=== PATIENT | female | born 1965 | race Caucasian/White ===

== ENCOUNTER 2018-05-13 08:06 | Day surgery (SDC) | payer OTHER, SELFPAY ==
[2018-05-13] VITALS (9 sets, daily range): BP systolic 139–176; BP diastolic 70–101; PULSE 89–108; RESP 16–24; TEMP 36.1–36.9; O2SAT 94–97; BMI 38.2
[2018-05-13 08:38] LABS: Hemoglobin 13.6 g/dl (12.0-15.0); Mean Corp Hgb Conc 32.4 g/gl (32-36); Mean Corpuscular Volume 92.5 fL (81-99); Mean Platelet Vol. 9.3 fl (6.2-12.0); Platelet Count 297 K/mm3 (150-450); RBC Distribution Width CV 12.6 % (11.6-14.6); RBC Distribution Width SD 41.8 fl (35.1-43.9); Red Blood Count 4.54 M/mm3 (4.2-5.4); White Blood Count 7.4 K/mm3 (4.4-11.0)
[2018-05-13 08:42] LABS: Scan Indicated on CBC? Y/N NO
--- NOTE | 2018-05-13 10:30 | EMB_PTH ---
PATIENT: Kade AQUINO LOC: [facility] [place] U#:[id number] AGE/SX: 52/F ROOM: RE05/13/[address]: Dr. Joan Sinclair, MDDOB: 1965 BED: DIS: 05/13/2018 SPEC #: [id number] RECD: 05/13/18 14:10 STATUS: REDDY RENisreen #: [id number] GERARDO: 05/13/18 10:[address]: Joan Sinclair DEPT: SURGICAL PATHOLOGY RECD BY: Jose Crook ENTERED: 05/13/18 14:42 SP TYPE: ENDOM BX/C OTHR DR: Dr. Tyrone Langston III, MD Tissues: Endometrium, NOS Procedures: Surgery Specimen Level IV HEADER OPERATION: Hysteroscopy, D & C Symphion PRE-OP DIAGNOSIS: Thickened endometrium, postmenopausal bleeding TISSUE SUBMITTED: Endometrial polyp and endometrial curettings MICROSCOPIC DIAGNOSIS Endometrial polyp and curettings: Polypoid fragments of endometrium with simple hyperplasia without atypia. Mild chronic endometritis. AM:tr 05/14/18 MICROSCOPIC DESCRIPTION Slides are reviewed. GROSS DESCRIPTION Received in fixative is one container labeled with the patient's name and designated endometrial polyp and curettings. The specimen consists of multiple irregular fragments of pink-sharma soft tissue that in aggregate measure 5.5 x 5 x 0.2 cm. The specimen is submitted in its entirety in two cassettes. / AM:tr 05/13/18 TC:5 CPT: 82539
--- NOTE | 2018-05-13 11:16 | PCM.OPRPT ---
Report of Operation Date of Procedure: 05/13/18 Pre-Operative Diagnosis: Post menopausal bleeding, thickened endometrium, enlarged uterus Post-Operative Diagnosis: same, enlarged uterus, endometrial polyp Surgery/Procedure Performed:: Hysteroscopy, D&C with symphion, polypectomy Description of Surgical Findings:: enlarged anteverted uterus- endometrial polyp noted- moderate amount of endometrial tissue noted. Both tubal ostia visualized. carpenter prototype: - Jules Meade ms 3 Type of Anesthesia:: General - LMA Specimen's removed: Endometrial polyp, Endometrial curettings Drains: none Estimated Blood Loss (mL): 5 Fluids Replaced: 1000cc Description of Procedure: Informed consent was obtained the patient was taken the operating room she was placed in supine position. She was given anesthesia. She was then placed in the [facility] where she was prepped and draped in the normal sterile fashion. Bladder drained - 200cc clear yellow urine expelled. At this time the weighted speculum was placed in the posterior fornix of vagina. Single-tooth tenaculum was used to gently grasp the anterior lip the cervix. At this time the uterine cavity was sounded to approximately 17cm. Gentle dilatation was performed once adequate dilatation of the cervix was achieved the hysteroscope using normal saline as a distention medium was placed. abundant Endometrial tissue with possible polyp on Left lateral asepect of uterus . Otherwise no gross abnormalities- cavity intact- both Tubal ostia visualized. Symphion resection device used to perform polypectomy and ECC. Moderate amount of endometrial tissue removed. This will be sent to pathology for evaluation. cavity remained intact. Fluid deficit approx 300cc. Tenaculum removed- good hemostasis. Procedure was deemed complete successful there are no complications. Anticipated normal postoperative course. Instrument lap count correct ?2. Vaginal Sweep was negative. Grafts/Implants Used: none - Complications none - Admit VTE Documentation VTE Present on Admission: Yes VTE Mechan Device Prophylaxis: SCD's VTE Pharm Prophylaxis ordered?: No
--- NOTE | 2018-05-13 11:22 | OP.PCM_ITS ---
Report of Operation Date of Procedure: 05/13/18 Pre-Operative Diagnosis: Post menopausal bleeding, thickened endometrium, enlarged uterus Post-Operative Diagnosis: same, enlarged uterus, endometrial polyp Surgery/Procedure Performed:: Hysteroscopy, D&C with symphion, polypectomy Description of Surgical Findings:: enlarged anteverted uterus- endometrial polyp noted- moderate amount of endometrial tissue noted. Both tubal ostia visualized. 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 She was given anesthesia. She was then placed in the [facility] where she was prepped and draped in the normal sterile fashion. Bladder drained - 200cc clear yellow urine expelled. At this time the weighted speculum was placed in the posterior fornix of vagina. Single-tooth tenaculum was used to gently grasp the anterior lip the cervix. At this time the uterine cavity was sounded to approximately 17cm. Gentle dilatation was performed once adequate dilatation of the cervix was achieved the hysteroscope using normal saline as a distention medium was placed. abundant Endometrial tissue with possible polyp on Left lateral asepect of uterus . Otherwise no gross abnormalities- cavity intact- both Tubal ostia visualized. Symphion resection device used to perform polypectomy and ECC. Moderate amount of endometrial tissue removed. This will be sent to pathology for evaluation. cavity remained intact. Fluid deficit approx 300cc. Tenaculum removed- good hemostasis. Procedure was deemed complete successful there are no complications. Anticipated normal postoperative course. Instrument lap count correct ?2. Vaginal Sweep was negative. Grafts/Implants Used: none - Complications none - Admit VTE Documentation VTE Present on Admission: Yes VTE Mechan Device Prophylaxis: SCD's VTE Pharm Prophylaxis ordered?: No
--- NOTE | 2018-05-13 11:24 | DCINST_ITS ---
Discharge Diet: No Restrictions Discharge Activity: Return to Normal Activity, May Shower, May Take a Tub Bath - in 2 weeks. Allergies/Adverse Reactions: Allergies acetaminophen [From Tylenol] Allergy (Verified 05/07/18 08:54) TACHYCARDIA Medications to take at Discharge Lisinopril/Hydrochlorothiazide [Lisinopril-Hctz 20-12.5 mg Tab] 1 each PO QODAY 05/07/18 Primary Care Physician: Tyrone Langston III, MD [Primary Care Provider] - Test Results: Test results from this visit will be discussed in further detail at your follow- up appointment, if applicable.
== END 2018-05-13 13:36 | disposition home or self-care (01) ==
LOC: SDC 08:07 → AC 08:09
PROVIDERS: Family Provider Family Medicine; PCP Family Medicine; Referring Provider Obstetrics & Gynecology; Visit Provider Obstetrics & Gynecology
PROC: 0UB98ZZ Excision of Uterus, Via Natural or Artificial Opening Endoscopic (ICD-10-PCS; CPT 58558; principal; 2018-05-13 10:15)
DX: N85.01 Benign endometrial hyperplasia (principal); N71.1 Chronic inflammatory disease of uterus; N95.0 Postmenopausal bleeding; N85.2 Hypertrophy of uterus; R93.89 Abnormal findings on diagnostic imaging of other specified body structures; I10 Essential (primary) hypertension
CPT/HCPCS: 00952; 58558; 36415; 85027; 88305; J7120; J2405

== ENCOUNTER 2018-07-08 06:56 | Inpatient (IN) | payer OTHER, SELFPAY ==
[2018-05-13 08:35] VITALS: BMI 38.2
--- NOTE | 2018-06-30 11:51 | HP.PCM_ITS ---
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 Pt has had significant heavy bleeding with clots- placed on Provera taper short term only (has h/o E/P receptor + breast ca)- pt ultimately decided to proceed with surgical mgmt. Pt was given option to go to [facility] for surgical consultation for Laparoscopic morcellation of uterus/fibroids-declines. Pt today matt CP, SOB, Dizziness. ? PAST?MEDICAL?HISTORY PAST MEDICAL HISTORY Diagnosis Date ? Depression ? ? Essential hypertension, benign 06/05/2010 ? 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 10/2012 ? PAST?SURGICAL?HISTORY PAST SURGICAL HISTORY Procedure Laterality Date ? BX BREAST PERC NEED W/GUID ? 10/27/12 ? U/S needle core bx UOQ left breast ? DELIVERY ONLY ? TIMES 2 ? , low cervical ? HYSTEROSCOPY BX W/WO D&C ? 05/2018 ? simple hyperplasia w/o atypia ? MASTECTOMY,PARTIAL, WITH AXILLARY LYMPHADENECTOMY ? 11-17-12 ? LEFT ? REVISE MEDIAN N/CARPAL TUNNEL SURG ? ? ? Carpal tunnel decomp bilateral ? FAMILY?HISTORY FAMILY HISTORY Problem Relation Age of Onset ? Ischemic Heart Disease Father 75 ? OR ? Hypertension Father ? ? other (Dementia) Father ? ? Heart Mother ? ? Hypertension Brother ? ? None Sister ? ? Cancer Maternal Grandmother ? ? breast ? Cancer Paternal Grandmother ? ? Cancer Paternal Aunt ? ? Cancer Paternal Aunt ? ? No Known Problems Daughter ? ? No Known Problems Daughter ? ? 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 CURRENT?MEDICATIONS ? Current Outpatient Medications: medroxyPROGESTERone (PROVERA, CYCRIN) 10 mg tablet Take one tablet TID until bleeding stops then 1 tab BID x 3 days then 1 tab daily losartan (COZAAR) 50 mg tablet Take 1 tablet by mouth once daily. medroxyPROGESTERone (PROVERA) 5 mg tablet Take 1 tablet by mouth once daily. oxyCODONE-acetaminophen (PERCOCET) 5-325 mg tablet Take 1 tablet by mouth every 6 hours as needed for Pain for up to 7 days. ibuprofen (MOTRIN) 600 mg tablet Take 1 tablet by mouth every 6 hours as needed. FOR PAIN. simethicone, chewable (MYLICON) 80 mg chewable tablet Take 1 tablet by mouth every 6 hours as needed. docusate sodium (COLACE) 100 mg capsule Take 1 capsule by mouth twice daily. ? No current facility-administered medications for this visit. Allergies As of Date: 06/30/2018 Allergen Noted Reaction SEASONAL ALLERGIES 10/07/2012 Other: See Comments ? Fully Assessed 06/30/2018 ? ? REVIEW OF SYSTEMS Abdomen: no pain Bladder: no dysuria.. Expanded ROS: GENERAL: Negative for malaise, fever Allergies and current medication updated:Yes ? EXAM: BP 136/84 Wt 226 lb (102.5kg) LMP 08/08/2016 ? GENERAL: pleasant, female in no apparent distress HEENT: Normocephalic, atraumatic, mucus membranes moist and no lesions NECK: Supple and full range of motion DERMATOLOGY: Normal, without lesions, non-icteric and non-hirsute CARDIAC: regular rate and rhythm CHEST: Normal inspiratory effort, clear to auscultation NEURO: alert and oriented x3,exam grossly non-focal EXTREMITIES: normal ? Overall impression: uterus enlarged with two fibroids- largest fibroid is 9.5x8.5x8.5cm Thickened endometrium measuring 19.6mm right and left ovaries not seen no free fluid noted. Recommendations / therapy: Consider EMB with Endosee for further evaluation of endometrium. Follow- up: F/u as clinically indicated. Indication: Postmenopausal bleeding. Gynecological Ultrasonography: Uterus: normal, anteverted. Size: Longitudinal 181 mm. Anterio- posterior 75 mm. Transverse 146 mm. Volume: 1037.7 ml. Fibroids: Fibroid 1: Size: 95 mm x 85 mm x 85 mm. Type: anterior. Position: left mid uterus. Fibroid 2: Size: 33 mm x 17 mm x 28 mm. Type: anterior. Position: right fundus. Endometrium: endometrial cavity could not be seen clearly. Endometrium thickness total: 19.6 mm. Right Ovary: subvisualized. Left Ovary: subvisualized. [place] / [place]: no free fluid visible. Method: transvaginal ultrasound, transabdominal ultrasound, color Doppler, 2 D. View: suboptimal - restricted by patient discomfort. Performed by:Lynn Sales RDMS Read by:Joan Osorio MD ? ASSESSMENT AND PLAN: Encounter Diagnosis ? ? ICD-10-CM ? 1. Post-op pain G89.18 oxyCODONE-acetaminophen (PERCOCET) 5-325 mg tablet ? 2. Pt has been counseled on risks/benefits and alternatives of surgery including but not limited to anesthesia, bleeding, infection, injury to pelvic structures including bowel, bladder, ureters and vessels. Pt wishes to proceed with surgery at this time. 3. We reviewed possibility of oophorectomy- message sent to Oncologist to confirm best approach due to history. 4. Short term use of Progesterone for Bleeding control - heavy bleeding with clots - will stop immediately at time of surgery 5. Consent obtained 6. ERAS protocol reviewed 7. POST OP MEDS GIVEN TODAY ? Joan Sinclair MD ? ? ?
--- NOTE | 2018-07-05 10:18 | EKG12_ITS ---
Test Reason : PRE OP Blood Pressure : / mmHG Vent. Rate : 073 BPM Atrial Rate : 073 BPM P-R Int : 158 ms QRS Dur : 084 ms QT Int : 392 ms P-R-T Axes : 004 019 034 degrees QTc Int : 431 ms Normal sinus rhythm Normal ECG Confirmed by DANIELLE PORTER, JENNIFER ([id number]), editor publications KLAUDIA WILSON ([id number]) on 07/06/2018 11:05:38 AM Referred By: Joan Sinclair Confirmed By:JENNIFER SANTOS MD
--- NOTE | 2018-07-05 10:39 | RAD_ITS ---
STUDY: X-RAY CHEST REASON FOR EXAM: Female, 53 years old. Preoperative evaluation. TECHNIQUE: PA and lateral views of the chest. COMPARISON: None. FINDINGS: The patient is status post left breast surgery with surgical clips in the left axillary region. The lungs are clear and expanded. There is no demonstrated pleural abnormality. Normal size heart. Normal mediastinum and jessica. Normal visualized pulmonary arteries. Normal visualized aortic arch and descending thoracic aorta. There are mild degenerative changes of the visualized thoracic spine. Normal visualized ribs, clavicles, and shoulders. There is no demonstrated abnormality of the visualized soft tissue structures of the upper abdomen. RAD/Chest PA and Lateral IMPRESSION: No acute abnormality is seen. Electronically Signed: Ezra Limon, at 12:18 EDT , Service support ,
[2018-07-05 11:15] LABS: Hematocrit 40.6 % (37-47); Hemoglobin 13.3 g/dl (12.0-15.0); Mean Corp Hgb Conc 32.8 g/gl (32-36); Mean Corpuscular Volume 91.6 fL (81-99); Mean Platelet Vol. 9.6 fl (6.2-12.0); Platelet Count 309 K/mm3 (150-450); RBC Distribution Width CV 13.4 % (11.6-14.6); RBC Distribution Width SD 43.9 fl (35.1-43.9); Red Blood Count 4.43 M/mm3 (4.2-5.4); White Blood Count 5.7 K/mm3 (4.4-11.0)
[2018-07-05 11:23] LABS: Scan Indicated on CBC? Y/N NO
[2018-07-05 11:41] LABS: Anion Gap 5 (5-15); BUN 21 mg/dL (7-18); BUN/Creat Ratio 25.3 RATIO (10-20); Calcium,Total 9.3 mg/dL (8.5-10.1); Chloride 109 mmol/L (98-107); Creatinine, Serum 0.83 mg/dL (0.55-1.02); EST Glomerular Filtration Rate 76 mL/min (>60); Est Glom Filt Rate - Afr Amer 92 mL/min (>60); Glucose 103 mg/dL (74-106); Potassium 4.1 mmol/L (3.5-5.1); Sodium Level 141 mmol/L (136-145)
[2018-07-08] VITALS (17 sets, daily range): BP systolic 76–137; BP diastolic 45–83; PULSE 64–106; RESP 14–24; TEMP 35.9–36.9; O2SAT 92–100; BMI 39.1
[2018-07-08] MEDS: Magnesium Sulfate 4gm/100mL 4 GM/100 ML IV.SOLN. IV (07:54)
[2018-07-08] MEDS: Lactated Ringers 1,000 ML 40 ML IV (07:55)
[2018-07-08] MEDS: Celecoxib 200 MG Capsule 400 MG PO (08:04)
[2018-07-08] MEDS: Gabapentin 600 MG Tablet PO (08:04)
[2018-07-08] MEDS: Enoxaparin 40 MG/0.4 ML Syringe SC (08:06)
[2018-07-08] MEDS: Scopolamine 1mg/72hr Patch 1 PATCH TRANSDERM. (08:07)
[2018-07-08 08:25] LABS: Bedside Glucose 79 mg/dL (70-110)
--- NOTE | 2018-07-08 09:00 | HYST_PTH ---
PATIENT: Kade AQUINO LOC: [facility] U#:[id number] AGE/SX: 53/F ROOM: [facility] RE07/08/[address]: Dr. Joan Sinclair, MDDOB: 1965 BED: 1 DIS: 07/09/2018 SPEC #: [id number] RECD: 07/08/18 12:22 STATUS: REDDY PORSCHE #: [id number] GERARDO: 07/08/18 09:[address]: Joan Sinclair DEPT: SURGICAL PATHOLOGY RECD BY: Jose Crook ENTERED: 07/08/18 13:25 SP TYPE: HYSTERECT OTHR DR: Dr. Tyrone Langston III, MD Tissues: Uterus, NOS Procedures: Surgery Specimen Level V HEADER OPERATION: ERAS, hysterectomy, total abdominal, bilateral salpingectomy PRE-OP DIAGNOSIS: Fibroid, uterus, PMB, simple endometrial hyperplasia without atypia TISSUE SUBMITTED: Uterus, bilateral fallopian tubes, bilateral ovaries MICROSCOPIC DIAGNOSIS Uterus, bilateral fallopian tubes and bilateral ovaries, total abdominal hysterectomy and bilateral salpingo-oophorectomy: Cervix - focal mild chronic inflammation. Endometrium - simple cystic hyperplasia without atypia. Myometrium - leiomyomas (largest measuring 9.2 cm in diameter). - Focal adenomyosis. Bilateral fallopian tubes - no pathologic diagnosis. Bilateral ovaries - no pathologic diagnosis. ANIRUDH:tr 07/12/18 COMMENT Please make reference to previous specimen ([id number]) endometrial polyp and curettings with diagnosis of polypoid fragments of endometrium with simple hyperplasia without atypia. MICROSCOPIC DESCRIPTION Slides are reviewed. GROSS DESCRIPTION Received in fixative is one container labeled with the patient's name and designated uterus and bilateral fallopian tubes and ovaries. The specimen consists of a uterus with attached cervix and separate bilateral ovaries and fallopian tubes. The uterus with attached cervix weights 1038 gm and measures 17.5 x 15.5 x 10 cm. The serosal surface of the uterus is reddish-pink and is markedly distorted by several bulging fibroid masses. Minimal adhesion is observed. The attached cervix measures 4.2 cm in length x 2.5 cm in diameter. The exocervical mucosa is sharma and smooth. The cervical os is patulous and measures 0.6 cm in length. The uterus is opened to reveal an irregular and triangular endometrial cavity measuring 4.5 x 2.5 cm with an average endometrial thickness of 0.1 cm. The endometrial surface is reddish-pink and congested. Sections through the myometrium demonstrate several sharma-white well-circumscribed fibroid masses, the largest of which measures 9.2 cm in diameter. Grossly, no hemorrhage or degenerative change is identified within the fibroid nodules. The first ovary measures 3 x 1.8 x 1.2 cm. The serosal surface is sharma-pink with a slightly wrinkled appearance. Sections through the ovary demonstrate cut surfaces which are sharma and grossly within normal limits. The attached fallopian tube measures 3.5 cm in length x 0.6 cm in diameter. The serosal surface is reddish-pink and smooth. A fimbriated end is present. Cross-sections through the fallopian tube demonstrate a pinpoint lumen. The contralateral ovary measures 3 x 2.1 x 1.4 cm. The surface is sharma-pink and slightly wrinkled. A bluish subserosal cyst measuring 0.7 cm in diameter is noted. Sections through the ovary are grossly within normal limits. The attached fallopian tube measures 3.4 cm in length x 0.5 cm in diameter. The serosal surface is reddish-pink and smooth. A fimbriated end is present. Cross-sections through the fallopian tube demonstrate a pinpoint lumen. Also received within the same specimen container is a free fibroid mass measuring 3.2 x 3 x 2.1 cm. Cross-sections demonstrate a cut surface which is sharma and homogenous. Senior Payroll Manager sections are submitted as follows: 1 - anterior cervix, 2 - posterior cervix, 3 & 4 - anterior endomyometrium, 5 & 6 - posterior endomyometrium, 7-10 - fibroids, 11 - first ovary and fallopian tube, 12 - second fallopian tube and portion of free fibroid mass. / CE:tr 07/08/18 More sections from both ovaries are submitted in five more cassettes (13-17). / SJ:tr 07/09/18 TC:5 CPT: [id number]
[2018-07-08] MEDS: Cefazolin 2 GM in 0.9% Normal Saline 100 ML IV (09:04)
[2018-07-08] MEDS: Bupivacaine Mpf 0.5% 30 ML VIAL (09:21)
--- NOTE | 2018-07-08 11:21 | PCM.OPRPT ---
Problem List (1) Fibroid uterus Status: Acute (2) PMB (postmenopausal bleeding) Status: Acute (3) Simple endometrial hyperplasia without atypia Status: Acute Report of Operation Date of Procedure: 07/08/18 Pre-Operative Diagnosis: Fibroid uterus, AUB, simple hyperplasia without atypia Post-Operative Diagnosis: same Surgery/Procedure Performed:: TAYLOR, BSO Description of Surgical Findings:: ENLAERGED 18 WK SIZE UTERUS. NORMAL TUBES AND OVARIES BILATERALLY. MULTIPLE FIBROIDS, SUBSEROSAL AND INTRAMURAL. lime mixer: Mary - lindsay knowles lime mixer: Orly Bustillo Type of Anesthesia:: General, Local Special Medications: marcaine Specimen's removed: uterus, bilateral tubes, bilateral ovaries, cervix Drains: bal Estimated Blood Loss (mL): 500 Description of Procedure: After informed consent was obtained the patient was taken the operating room she was placed in the supine position. Bal catheter was placed under sterile technique. Abdominal and vaginal preps were performed. Patient was draped in the normal sterile fashion. At this time Pfannenstiel incision was made carried down to the underlying layer of the fascia. Fascia was then grasped with 2 straight [place] clamps in the inferior aspect the rectus muscle dissected off sharply. This was then turned to superior aspect of the fascial edge was again grasped with 2 Rodrick clamps tented up and the rectus muscle dissected off sharply. At this time the rectus muscles were midline bluntly. Peritoneum was entered bluntly. At this time the uterus was palpated shifted more to the right approximately 18 week size uterus with multiple fibroids at this time the skin incision was extended to allow delivery of the uterus through the incision. The uterus was brought up through the incision. Round ligaments on either side were clamped scalpel used to incise and then they were suture-ligated using 0 Vicryl suture. Next due to low visibility and inability to manipulate we clamped the uterovarina and ligated and sutured ligated to allow better visualization. Next the bladder flap was taken down anteriorly using the Metzenbaum scissors and then digitally. At this time uterine arteries were then dissected. Uterine arteries were clamped ligated with scalpel and sutured. This was continued down until the cervical vaginal junction. At this time Jorge's were placed just below the cervix. Specimen was dissected off using Aron scissors. Specimen was removed and sent to pathology for evaluation. At this time the cuff was suture transfixed using 0 Vicryl. Multiple piredc-di-lxyss sutures then placed in the midline. Good hemostasis was appreciated. At this time further evaluation of bilateral adnexa was performed- now able to clamp IP ligament and Suture transfix- as well as a free tie placement on each IP. Bilateral tubes and ovaries removed without difficulty and good hemostasis appreciated. Irritation performed- good hemostasis. Cuff and pedicles evaluated and good hemostasis again appreciated. SHANNAN placed on pedicales and CUFF. The peritoneum was reapproximated using #2 Vicryl suture in a running fashion. Next the fascia was reapproximated using O PDS in a running fashion. The subcutaneous layer was closed using 2 -0 plain gut suture. And the skin was closed using 4-0 Vicryl on a Balwinder needle. At this time once closure was complete dressing was applied. Both ureters were visualized and good peristalsis was noted. ALL laps were removed and accounted for. At this time patient was transferred to the recovery room in stable condition. Anticipate Normal postoperative course with patient. Instrument, lap and needle count correct x 2. Grafts/Implants Used: none - Complications NONE - Admit VTE Documentation VTE Present on Admission: Yes VTE Mechan Device Prophylaxis: SCD's VTE Pharm Prophylaxis ordered?: Yes
--- NOTE | 2018-07-08 11:31 | OP.PCM_ITS ---
Problem List (1) Fibroid uterus Status: Acute (2) PMB (postmenopausal bleeding) Status: Acute (3) Simple endometrial hyperplasia without atypia Status: Acute Report of Operation Date of Procedure: 07/08/18 Pre-Operative Diagnosis: Fibroid uterus, AUB, simple hyperplasia without atypia Post-Operative Diagnosis: same Surgery/Procedure Performed:: TAYLOR, BSO Description of Surgical Findings:: ENLAERGED 18 WK SIZE UTERUS. NORMAL TUBES AND OVARIES BILATERALLY. MULTIPLE FIBROIDS, SUBSEROSAL AND INTRAMURAL. agricultural equipment salesperson: Mary - lindsay knowles agricultural equipment salesperson: Orly Bustillo Type of Anesthesia:: General, Local Special Medications: marcaine Specimen's removed: uterus, bilateral tubes, bilateral ovaries, cervix Drains: bal Estimated Blood Loss (mL): 500 Description of Procedure: After informed consent was obtained the patient was taken the operating room she was placed in the supine position. Bal catheter was placed under sterile technique. Abdominal and vaginal preps were performed. Patient was draped in the normal sterile fashion. At this time Pfannenstiel incision was made carried down to the underlying layer of the fascia. Fascia was then grasped with 2 straight [place]ee clamps in the inferior aspect the rectus muscle dissected off sharply. This was then turned to superior aspect of the fascial edge was again grasped with 2 Rodrick clamps tented up and the rectus muscle dissected off sharply. At this time the rectus muscles were midline bluntly. Peritoneum was entered bluntly. At this time the uterus was palpated shifted more to the right approximately 18 week size uterus with multiple fibroids at this time the skin incision was extended to allow delivery of the uterus through the incision. The uterus was brought up through the incision. Round ligaments on either side were clamped scalpel used to incise and then they were suture- ligated using 0 Vicryl suture. Next due to low visibility and inability to manipulate we clamped the uterovarina and ligated and sutured ligated to allow better visualization. Next the bladder flap was taken down anteriorly using the Metzenbaum scissors and then digitally. At this time uterine arteries were then dissected. Uterine arteries were clamped ligated with scalpel and sutured. This was continued down until the cervical vaginal junction. At this time Jorge's were placed just below the cervix. Specimen was dissected off using Aron scissors. Specimen was removed and sent to pathology for evaluation. At this time the cuff was suture transfixed using 0 Vicryl. Multiple [id number] sutures then placed in the midline. Good hemostasis was appreciated. At this time further evaluation of bilateral adnexa was performed- now able to clamp IP ligament and Suture transfix- as well as a free tie placement on each IP. Bilateral tubes and ovaries removed without difficulty and good hemostasis appreciated. Irritation performed- good hemostasis. Cuff and pedicles evaluated and good hemostasis again appreciated. SHANNAN placed on pedicales and CUFF. The peritoneum was reapproximated using #2 Vicryl suture in a running fashion. Next the fascia was reapproximated using O PDS in a running fashion. The subcutaneous layer was closed using 2 -0 plain gut suture. And the skin was closed using 4-0 Vicryl on a Balwinder needle. At this time once closure was complete dressing was applied. Both ureters were visualized and good peristalsis was noted. ALL laps were removed and accounted for. At this time patient was transferred to the recovery room in stable condition. Anticipate Normal postoperative course with patient. Instrument, lap and needle count correct x 2. Grafts/Implants Used: none - Complications NONE - Admit VTE Documentation VTE Present on Admission: Yes VTE Mechan Device Prophylaxis: SCD's VTE Pharm Prophylaxis ordered?: Yes
[2018-07-08] MEDS: Hetastarch 6% /Ns 30 GM/500 ML BAG IV (12:36)
[2018-07-08] MEDS: Lactated Ringers 1,000 ML 70 ML IV (13:41)
[2018-07-08] MEDS: 0.9% NaCl Peripheral Flush Adult/Peds IV ×2 (17:49→22:21)
[2018-07-08] MEDS: Ketorolac 30 MG/ML Syringe IV ×2 (17:49→22:20)
[2018-07-08] MEDS: Docusate Sodium 100 MG Capsule PO (22:20)
[2018-07-09] MEDS: Lactated Ringers 1,000 ML 70 ML IV (01:36)
[2018-07-09 04:05] VITALS: BP 119/69; PULSE 73; RESP 18; TEMP 37.2; O2SAT 95
[2018-07-09] MEDS: Ketorolac 30 MG/ML Syringe IV ×3 (04:11→17:03)
[2018-07-09] MEDS: 0.9% NaCl Peripheral Flush Adult/Peds IV ×3 (04:11→17:10)
[2018-07-09 05:05] VITALS: O2SAT 96
[2018-07-09 06:05] LABS: Hematocrit 26.9 % (37-47); Hemoglobin 8.9 g/dl (12.0-15.0); Mean Corp Hgb Conc 33.1 g/gl (32-36); Mean Corpuscular Hgb 30.5 pg (27.0-32.0); Mean Corpuscular Volume 92.1 fL (81-99); Mean Platelet Vol. 9.2 fl (6.2-12.0); Platelet Count 252 K/mm3 (150-450); RBC Distribution Width CV 13.8 % (11.6-14.6); RBC Distribution Width SD 46.1 fl (35.1-43.9); Red Blood Count 2.92 M/mm3 (4.2-5.4); White Blood Count 7.7 K/mm3 (4.4-11.0)
[2018-07-09 06:12] LABS: Scan Indicated on CBC? Y/N NO
[2018-07-09 06:24] LABS: Anion Gap 7 (5-15); BUN 23 mg/dL (7-18); BUN/Creat Ratio 27.5 RATIO (10-20); Calcium,Total 8.1 mg/dL (8.5-10.1); Chloride 110 mmol/L (98-107); Creatinine, Serum 0.84 mg/dL (0.55-1.02); EST Glomerular Filtration Rate 75 mL/min (>60); Est Glom Filt Rate - Afr Amer 91 mL/min (>60); Estimated Creatinine Clearance 65.35 ml/min; Glucose 104 mg/dL (74-106); Potassium 4.5 mmol/L (3.5-5.1); Sodium Level 140 mmol/L (136-145)
[2018-07-09 07:05] VITALS: O2SAT 99
--- NOTE | 2018-07-09 08:20 | PCM.PN.OB ---
Subjective: pt seen up to chair. pt reports pain worse on right side, but is tolerable. pt was very drowsy overnight so did not get out of bed. pt reports no flatus, bal was recently removed. pt denies CP, SOB, dizziness. Pt denies any heavy vaginal bleeding. - Physical Exam General: Alert, Oriented x3 HEENT: Atraumatic Oral: Moist Mucosa Lungs: Clear to auscultation, Normal air movement Cardiovascular: Regular rate, Regular Rhythm Abdomen: Soft, Non-Distended, - - appropriately tender to palpation. INcision dressing dry and intact. Extremities: No Calf Tenderness Musculoskeletal: - - swelling in all distal extremities Neurological: Cranial nerves II-XII grossly intact Psych/Mental Status: Normal Affect Vital Signs Temp Pulse Resp BP Pulse Ox 98.9 F 73 18 119/69 99 07/09/18 04:05 07/09/18 04:05 07/09/18 04:05 07/09/18 04:05 07/09/18 07:05 Oxygen Flow Rate (L/min) 2 Oxygen Delivery Method Nasal Cannula Weight: 103.4 kg Body Mass Index (BMI) 39.1 Intake and Output for Last 24 Hours 07/07/18 07/08/18 07/09/18 23:59 23:59 23:59 Intake Total 3050 / 3050 914 / 914 Output Total 660 / 660 425 / 425 Balance 2390 / 2390 489 / 489 Laboratory Tests Past 24 Hrs 07/09/18 07/09/18 05:40 05:40 WBC 7.7 RBC 2.92 L Hgb 8.9 L Hct 26.9 L MCV 92.1 MCH 30.5 MCHC 33.1 RDW 13.8 RDW Differential 46.1 H Plt Count 252 MPV 9.2 Sodium 140 Potassium 4.5 Chloride 110 H Carbon Dioxide 23.0 Anion Gap 7 BUN 23 H Creatinine 0.84 Estim Creat Clear Calc 65.35 Est GFR (MDRD) Af Amer 91 Est GFR (MDRD) Non-Af 75 BUN/Creatinine Ratio 27.5 H Glucose 104 Calcium 8.1 L POC Glucose 07/08/18 08:14 POC Glucose 79 Medical Necessity - Tobacco Use Smoking Status: Never smoker Assessment/Plan All Active Problems Fibroid uterus (Acute) PMB (postmenopausal bleeding) (Acute) Simple endometrial hyperplasia without atypia (Acute) POD#1 s/p TAYLOR, BSO- acute blood loss anemia 1) Will recheck CBC at lunch 2) Abdominal binder 3) ambulation 4) pain mgmt 5) likely dc home later today
--- NOTE | 2018-07-09 08:27 | PCM.DC.AHY ---
Discharge Diet: No Restrictions Discharge Activity: Return to Normal Activity, May Not Drive - while taking narcotic pain medications., May Shower May shower in (days): 1 May resume sexual activity in: 6-8 weeks Lifting Restrictions: 20 Call your doctor if your incision/area has: Continuous Slow Oozing, Sudden Increased Bleeding, Increased Pain/ Swelling, Increased Redness, Foul Smelling Discharge Call your doctor if you observe: Fever of 101 or Higher, Inability to urinate, Inability to have a bowel movement, Using more than one pad per hour Allergies/Adverse Reactions: Allergies acetaminophen [From Tylenol] Allergy (Verified 07/08/18 07:45) TACHYCARDIA Medications to take at Discharge Ferrous Sulfate [Iron] 325 mg PO DAILY 07/01/18 Losartan Potassium [Cozaar] 50 mg PO DAILY 07/01/18 Magnesium Oxide [Mag-Ox 400] 400 mg PO DAILY PRN PRN tablet 07/09/18 Oxycodone [Oxyir] 5 mg PO Q4H PRN PRN 7 Days #28 tablet 07/09/18 The following prescriptions were given: Oxycodone [Oxyir] 5 mg PO Q4H PRN PRN 7 Days #28 tablet PRN Reason: Mod-Severe Pain (4-10/10) Orders to be completed after discharge: Type & Screen Time Frame: 07/01/18, Facility: [facility], Location: Laboratory 12 Lead EKG [CVS] Time Frame: 07/01/18, Facility: [facility], Location: Cardiovascular Services Chest PA and Lateral [RAD] Time Frame: 07/01/18, Facility: [facility], Location: Radiology, [facility] Basic Metabolic Profile (BMP) Time Frame: 07/01/18, Location: Laboratory CBC-Complete Blood Cnt No Diff Time Frame: 07/01/18, Location: Laboratory Primary Care Physician: Tyrone Langston III, MD [Primary Care Provider] - Test Results: Test results from this visit will be discussed in further detail at your follow-up appointment, if applicable. Please Follow Up With: Joan Sinclair MD When: as scheduled in 1-2 weeks
[2018-07-09 09:08] VITALS: BP 125/74; PULSE 90; RESP 18; TEMP 36.7; O2SAT 96
[2018-07-09 09:09] VITALS: PULSE 80
--- NOTE | 2018-07-09 10:05 | CASEMGMT ---
RN ESTEE Face to Face with patient for initial transition planning/care coordination assessment. RN CM introduced self and role at [facility]. Patient sitting in chair, alert and oriented. Patient willing to participate in assessment and is able to answer all questions appropriately. Care providers, pharmacy, and demographics verified. Patient wishes to discharge home, denies need for home health at this time. Patient states she has no further needs or concerns at this time. CM to follow for discharge planning needs that may arise. PCP: Kian Specialists: ASAD Stephenson Preferred Pharmacy: [facility] Insurance: [employer] Prescription Benefit: yes Living Will/HPOA: yes, Prasanna Coleman LNOK: , children Living Arrangements: Patient lives with family in 2 story home with availability to setup on first floor. Patient independent at home. Transportation: self/family DME/HHC: Denies need for HHC or DME. Disposition Plan: Patient to discharge home with family support and follow-up plans in place. Perla QUINTANILLA, RN, CM
[2018-07-09] MEDS: Losartan Potassium 50 MG Tablet PO (10:50)
[2018-07-09] MEDS: Enoxaparin 40 MG/0.4 ML Syringe SC (10:50)
[2018-07-09] MEDS: Ferrous Sulfate 325 MG Tablet PO (10:50)
[2018-07-09] MEDS: Docusate Sodium 100 MG Capsule PO (10:50)
[2018-07-09 12:32] LABS: Absolute Lymphocyte Count 1.78 X10^3/ul (0.83-4.51); Absolute Neutrophil Count 5.6 X10^3/uL (2.0-7.7); Basophil# 0.01 X10^3/uL; Basophil% 0.1 % (0-1); Eosinophil# 0.01 X10^3/uL; Eosinophils% 0.1 % (0-5); Hematocrit 26.1 % (37-47); Hemoglobin 8.6 g/dl (12.0-15.0); Lymphocyte # 1.78 X10^3/ul (4.0); Lymphocyte % 20.9 % (19-41); Mean Corpuscular Hgb 30.6 pg (27.0-32.0); Mean Corpuscular Volume 92.9 fL (81-99); Mean Platelet Vol. 9.1 fl (6.2-12.0); Monocyte# 1.14 X10^3/uL; Monocyte% 13.4 % (0-10); Neutrophil # 5.55 X10^3/uL (2.7-7.7); Neutrophil % 65.3 % (47-70); Platelet Count 247 K/mm3 (150-450); RBC Distribution Width CV 13.8 % (11.6-14.6); RBC Distribution Width SD 46.9 fl (35.1-43.9); Red Blood Count 2.81 M/mm3 (4.2-5.4); White Blood Count 8.5 K/mm3 (4.4-11.0)
[2018-07-09 12:34] LABS: POSITIVE COUNT NO; POSITIVE DIFFERENTIAL NO; POSITIVE MORPHOLOGY NO
[2018-07-09 15:00] VITALS: BP 124/77; PULSE 94; RESP 18; TEMP 37.2; O2SAT 98
== END 2018-07-09 18:22 | disposition home or self-care (01) | DRG 742 ==
LOC: ACINP 07:14 → MS3 12:51
PROVIDERS: Admitting Provider Obstetrics & Gynecology; Family Provider Family Medicine; PCP Family Medicine; Referring Provider Obstetrics & Gynecology; Visit Provider Obstetrics & Gynecology
PROC: 0UT90ZZ Resection of Uterus, Open Approach (ICD-10-PCS; CPT 58150; principal; 2018-07-08 08:40)
DX: D25.9 Leiomyoma of uterus, unspecified (principal); D62 Acute posthemorrhagic anemia; N85.01 Benign endometrial hyperplasia; N93.9 Abnormal uterine and vaginal bleeding, unspecified
CPT/HCPCS: 36415; 71046; 80048; 82962; 85025; 85027; 86850; 86900; 88307; 93005; 94762; J7120; A4216; J2405

== ENCOUNTER → 2019-03-03 14:12 | Outpatient (CLI) | payer OTHER, SELFPAY ==
[2018-07-08 14:22] VITALS: BMI 39.1
== END ==
PROVIDERS: Family Provider Family Medicine; PCP Family Medicine; Referring Provider Psychiatry & Neurology Psychiatry; Visit Provider Psychiatry & Neurology Psychiatry
DX: Z46.89 Encounter for fitting and adjustment of other specified devices (principal)

== ENCOUNTER → 2019-03-15 09:00 | Outpatient (CLI) | payer OTHER, SELFPAY ==
[2018-07-08 14:22] VITALS: BMI 39.1
== END ==
PROVIDERS: Family Provider Family Medicine; PCP Family Medicine; Referring Provider Family Medicine; Visit Provider Family Medicine
DX: R69 Illness, unspecified (principal)

== ENCOUNTER 2021-05-30 15:19 | Outpatient (CLI) | payer OTHER, SELFPAY | END 2021-05-30 23:59 | disposition home or self-care (01) | PROVIDERS: Visit Provider Otolaryngology | DX: Z20.822 Contact with and (suspected) exposure to COVID-19 (principal) | CPT/HCPCS: 87635; U0003; U0005 ==